=== PATIENT | male | born 1955 | race Caucasian/White ===

== ENCOUNTER → 2017-08-24 | Outpatient (CLI) | payer SELFPAY ==
[~2017-08-24] MED LIST: CEFTIN250 MG PO; FLOMAX 0.40.4 MG/CAP PO; LEVOTHYROXINE PO; PERCOCET 5/321 UDTAB PO; ULTRAM50 MG PO; ZOFRAN 4MG T4 MG/TAB PO
== END ==
LOC: COL.RAD 16:04
DX: K57.30 Diverticulosis of large intestine without perforation or abscess without bleeding (principal); N28.1 Cyst of kidney, acquired; W17.89XA Other fall from one level to another, initial encounter
CPT/HCPCS: Q9967

== ENCOUNTER → 2018-12-31 | Outpatient (CLI) | payer SELFPAY | LOC: COL.RAD 09:16 | DX: M47.812 Spondylosis without myelopathy or radiculopathy, cervical region (principal) ==